=== PATIENT | female | born 1985 | race Caucasian/White ===

== ENCOUNTER 2016-11-21 15:48 | Outpatient (CLI) | payer MEDICAID ==
[~2016-11-21] VITALS: Ht 157.5 cm; Wt 66.7 kg
[2016-11-21] MEDS ORDERED: PRENAT PO (16:50)
[2016-11-21 16:51] VITALS: BP 109/56; PULSE 80; RESP 18; Ht 157.5 cm; Wt 66.7 kg
--- NOTE | 2016-11-21 17:26 | RADRPT ---
PROCEDURE: US OB biophysical profile for twin gestation. CLINICAL INDICATION: decreased movements TECHNIQUE: Multiple sonographic images of the pelvis were obtained. The images were reviewed on a PACS workstation. COMPARISON: No prior studies are available for comparison. FINDINGS: There is a twin viable intrauterine gestation. There is a normal amount of amniotic fluid. The placenta is posterior and fundal in location. There is no evidence of placental abruption or a placenta previa. Twin A Cardiac activity is present with 156 beats per minute. There is a vertex presentation. MVP = 4.0 cm Biophysical profile: movement 2/2 tone 2/2. breathing 2/2 KYLER 2/2 Total 8/8 Twin B Cardiac activity is present with 161 beats per minute. There is a breech presentation. MVP = 4.2 cm Biophysical profile: movement 2/2 tone 2/2. breathing 2/2 KYLER 2/2 Total 8/8 RPTAT: AA . IMPRESSION: Normal biophysical profile for twin gestation . . Physician Pio Date Time Electronically viewed and signed by Physician Pio on 11/21/2016 17:26 /
--- NOTE | 2016-11-21 17:39 | TRIAGE ---
OB Triage Datetime Report Generated by CPN: 11/21/2016 17:38 Datetime: 11/21/2016 17:35 Stage of : OB Triage Labor Evaluation Monitor Mode: External Datetime: 11/21/2016 16:48 Assessment Type: Triage Maternal Assessment Level of Consciousness: Fully Conscious DTR's/Clonus: DTRs 2+; No Clonus Headache: Denies Blurred Vision: No Respiratory Effort: Unlabored; Regular Rhythm; Equal Expansion Breath Sounds, Left: Clear and Equal Breath Sounds, Right: Clear and Equal Nausea/Vomiting: Denies RUQ Epigastric Pain: Denies Lower Extremities Edema: None Degree: None Upper Extremities Edema: None Degree: None Facial Edema: None Fall Risk Assessment History of Falling: (0) No Secondary Diagnosis: (0) No Ambulatory Aid: (0) Bedrest/Nurse Assist IV Therapy: (0) No Gait: (0) Normal/Bedrest/Immobile Mental Status: (0) Oriented to Own Ability Fall Score: 0 Fall Risk Score Definition: No Risk: No action required Datetime: 11/21/2016 16:45 Time of Arrival: 11/21/2016 15:40 EGA: 29.5 Arrived By: Ambulatory Arrived From: Office Chief Complaint: pt sent from clinic for C/O DFM Movement: Decreased Contractions: Denies/Absent Rupture of Membranes: Denies Vaginal Bleeding: None Vaginal Discharge: Denies Recent Sexual Intercouse: Denies Abdominal Trauma: Not Applicable Patient Complaints: None Time Provider Notified: 11/21/2016 17:37 Provider Notified: DELSHAD Initial Plan: NST/BPP Datetime: 11/21/2016 16:41 Labor Evaluation Monitor Mode: External Heart Rate Monitor Mode: External US
--- NOTE | 2016-11-21 18:43 | CONS ---
Date/Time of Note Date/Time of Note DATE: 11/21/16 TIME: 18:40 Assessment/Plan Assessment/Plan Additional Assessment/Plan 31 y/o at 29w 5d with twins and dfm -NST reactive x2, BPP normal x2 -discharge home -f/u with OB Consultation Date/Type/Reason Admit Date/Time Reason for Consultation Decreased movement, twins Hx of Present Illness 31 y/o at 29w 5d with twins with decreased movement. Denies LOF, VB , UCs, dysuria. Getting PNC without other complications. Per HPI. Other systems negative. Past Medical History Medical History: no pertinent history Past Surgical History Past Surgical Hx: no surgical history Social History Denies habits Smoking Status: Never smoker Exam/Review of Systems Vital Signs Vitals Vital Signs Date Time Temp Pulse Resp B/P Pulse Ox O2 Delivery O2 Flow Rate FiO2 11/21/16 16:51 98.5 80 18 109/56 99 Room Air Exam Gen: NAD HEENT: NCAT CV: RRR Pulm: CTAB Abd: gravid, NT Back: no CVAT Ext: NT FHT: reactive x2 [place]: no UCs BPP: / x2 NATALIYA TAMAYO November 21, 2016 18:43
== END 2016-11-21 18:00 | disposition home or self-care (01) ==
LOC: OBT 15:48 → L-D 15:52 → OBT 18:00
PROVIDERS: ATTEND Obstetrics & Gynecology
DX: O36.8130 Decreased fetal movements, third trimester, not applicable or unspecified (principal); O30.003 Twin pregnancy, unspecified number of placenta and unspecified number of amniotic sacs, third trimester; Z3A.29 29 weeks gestation of pregnancy
CPT/HCPCS: 76818; Z7500; G0463

== ENCOUNTER 2016-12-30 15:20 | Outpatient (CLI) | payer MEDICAID ==
[~2016-12-30] VITALS: Ht 157.5 cm; Wt 72.8 kg
[~2016-12-30 15:20] MED LIST: PRENAT PO
[2016-12-30 16:00] VITALS: Ht 157.5 cm; Wt 72.8 kg
[2016-12-30] MEDS ORDERED: FER325 PO (16:00)
[2016-12-30] MEDS ORDERED: CALC600T11 PO (16:00)
[2016-12-30] MEDS ORDERED: FOLI-49 PO (16:00)
[2016-12-30 16:01] VITALS: BP 99/53; PULSE 71; RESP 18
--- NOTE | 2016-12-30 16:07 | RADRPT ---
PROCEDURE: US biophysical profile. CLINICAL INDICATION: Twin gestation. Decreased motion. Skin rash. TECHNIQUE: Multiple sonographic images of the uterus were obtained. The images were revi ewed on a PACS workstation. COMPARISON: No prior studies are available for comparison. FINDINGS: There is a live twin intrauterine gestation. Fetus A: heart rate is 154 beats per minute. The position is cephalic. The placenta is shared fundal. The single largest pocket of amniotic fluid is 5.5 cm. Breathing Movement: 2 Gross Body Movement: 2 Tone: 2 Qualitative Amniotic Fluid Volume: 2 TOTAL: 8 Fetus B: heart rate is 154 beats per minute. The position is cephalic. The placenta is share fundal. The single largest pocket of amniotic fluid is 2.9 cm. Breathing Movement: 2 Gross Body Movement: 2 Tone: 2 Qualitative Amniotic Fluid Volume: 2 TOTAL: 8 IMPRESSION: 1. Fetus A biophysical score is 8/8. 2. Fetus B biophysical score is 8/8. RPTAT: QQ .Mikey Lopez MD, Date Time Electronically viewed and signed by .Mikey Lopez MD, on 12/30/2016 16:07 .R/
[2016-12-30] MEDS ORDERED: LACTATED RINGER'S 1,000 ML IV SCH (16:10)
[2016-12-30] MEDS ORDERED: OXYTOCIN 30 UNITS/LR 500 ML IV PRN (16:30)
[2016-12-30] MEDS ORDERED: AMPICILLIN 2 GM/NS (PMX) 100 ML IV ONE (16:30)
[2016-12-30] MEDS ORDERED: METHYLERGONOVINE 0.2 MG INJ IM PRN (16:30)
[2016-12-30] MEDS ORDERED: CARBOPROST 250 MCG INJ IM PRN (16:30)
[2016-12-30] MEDS ORDERED: BUTORPHANOL 2 MG INJ IV PRN ×2 (16:30)
[2016-12-30] MEDS ORDERED: LIDOCAINE 1% (MPF) 30 ML INJ INJ PRN (16:30)
[2016-12-30] MEDS ORDERED: LACTATED RINGER'S 500 ML IV ONE (16:30)
[2016-12-30] MEDS ORDERED: DINOPROSTONE 10 MG VAG SUPP VAG ONE (16:30)
[2016-12-30] MEDS ORDERED: MISOPROSTOL 200 MCG TAB PR PRN (16:30)
[2016-12-30] MEDS ORDERED: OXYTOCIN 30 UNITS/LR 500 ML IV SCH ×2 (16:30)
[2016-12-30] MEDS ORDERED: ACETAMINOPHEN/CODEINE #3 TAB PO PRN (16:30)
[2016-12-30] MEDS ORDERED: IBUPROFEN 600 MG TAB PO PRN (16:30)
--- NOTE | 2016-12-30 16:50 | TRIAGE ---
OB Triage Datetime Report Generated by CPN: 12/30/2016 16:49 Datetime: 12/30/2016 16:36 Stage of : OB Triage Maternal Assessment Level of Consciousness: Fully Conscious Labor Evaluation Frequency: 6-10 Monitor Mode: External Duration (sec)2399: 50-110 Quality: Mild Resting Tone [place]: Relaxed Heart Rate FHR Baseline Rate: 145 Monitor Mode: External US Variability: Moderate 6-25 bpm Accelerations: 15X15 Decelerations: None Category: Category I Pain Assessment Pain Scale: 0 Pain Goal: 3 Vaginal Exam Membrane Status: Intact Vaginal Bleeding: None Datetime: 12/30/2016 15:55 Monitor Mode: External US Datetime: 12/30/2016 15:44 Assessment Type: Triage Maternal Assessment Level of Consciousness: Fully Conscious DTR's/Clonus: DTRs 2+; No Clonus Headache: Denies Blurred Vision: No Respiratory Effort: Unlabored; Regular Rhythm; Equal Expansion Breath Sounds, Left: Clear and Equal Breath Sounds, Right: Clear and Equal Nausea/Vomiting: Denies RUQ Epigastric Pain: Denies Lower Extremities Edema: None Degree: None Upper Extremities Edema: None Degree: None Facial Edema: None Fall Risk Assessment History of Falling: (0) No Secondary Diagnosis: (0) No Ambulatory Aid: (0) Bedrest/Nurse Assist IV Therapy: (0) No Gait: (0) Normal/Bedrest/Immobile Mental Status: (0) Oriented to Own Ability Fall Score: 0 Fall Risk Score Definition: No Risk: No action required Datetime: 12/30/2016 15:43 Time of Arrival: 12/30/2016 15:18 EGA: 35.2 Arrived By: Ambulatory Arrived From: Office Chief Complaint: pt here C/O GENRALIZED RASH Movement: Present Contractions: Denies/Absent Rupture of Membranes: Denies Vaginal Bleeding: None Vaginal Discharge: Denies Recent Sexual Intercouse: Denies Abdominal Trauma: Not Applicable Patient Complaints: None Time Provider Notified: 12/30/2016 15:20 Provider Notified: JUDITH Initial Plan: NST/BPP X2 Datetime: 12/30/2016 15:34 Monitor Mode: External Monitor Mode: External US Datetime: 11/21/2016 17:35 Maternal Assessment Level of Consciousness: Fully Conscious Labor Evaluation Frequency: NONE Resting Tone [place]: Relaxed Heart Rate FHR Baseline Rate: 145 Monitor Mode: External US Variability: Moderate 6-25 bpm Accelerations: 15X15 Decelerations: None Pain Assessment Pain Scale: 0 Pain Goal: 3 Vaginal Exam Membrane Status: Intact Vaginal Bleeding: None Datetime: 11/21/2016 16:48 Fall Score: 0 Fall Risk Score Definition: No Risk: No action required Datetime: 11/21/2016 16:45 EGA: 29.5
--- NOTE | 2016-12-30 17:05 | QN ---
Documentation Comment pt with rash sent for nst good fm vss us wnl nst reactive a/p iup 35 weeks rash-stable dc home JEAN PAUL LUCAS MD Dec 30, 2016 17:04
[2016-12-30] MEDS ORDERED: AMPICILLIN 1 GM/NS (PMX) 50 ML IV SCH (20:30)
[2016-12-30] MEDS ORDERED: LACTATED RINGER'S 1,000 ML IV PRN (23:00)
--- NOTE | 2016-12-31 01:24 | NSTRPT ---
NST Information Datetime Report Generated by CPN: 12/31/2016 01:24 Datetime: 12/27/2016 10:10 NST Information EGA: 34.6 Test Number: 6 Time on Monitor: 12/27/2016 10:30 Time off Monitor: 12/27/2016 11:02 NST Duration (Min): 32 Reason for NST: Multiple Gestation; Other Reason for NST Other: Twins, [place]/Di Test and Monitor Explained: Monitor Explained; Test Explained; Verbalized Understanding Pulse: 75 Resp: 18 SBP: 97 DBP: 52 Test Evaluation NST Interventions: None Patient States Movement: Present Contraction Frequency: X1(denies) FHR Baseline : 130 Variability: Moderate 6-25bpm Accelerations: 15X15 Decelerations: None FHR Category: Category I NST Results: Reactive Comments: To u/s. TWIN A: mvp: 2.8cm. CEPHALIC LFT, TWIN B: 2.8cm. TRV-RT. 1105-Pt home undelivered with PTL precautions, kick count instructions reviewed and follow up NST appt. given. States understanding and denies futher questions at this time. NST Baby B Patient States Movement: Present FHR Baseline: 135 Variability: Moderate 6-25bpm Accelerations: 15X15 Decelerations: None FHR Category: Category I NST Results: Reactive Electronically Signed By E-Signature: with User ID: [id number] Datetime: 12/24/2016 08:16 NST Information EGA: 34.3 NST Duration (Min): 33 Datetime: 12/20/2016 08:22 NST Information EGA: 33.6 NST Duration (Min): 35 Datetime: 12/17/2016 13:33 NST Information EGA: 33.3 NST Duration (Min): 38 Datetime: 12/13/2016 08:23 NST Information EGA: 32.6 NST Duration (Min): 23 Datetime: 12/10/2016 14:39 NST Information EGA: 32.3 NST Duration (Min): 27
== END 2016-12-30 17:02 | disposition home or self-care (01) ==
LOC: OBT 15:20 → L-D 15:20 → OBT 17:02
PROVIDERS: ATTEND Obstetrics & Gynecology
DX: O26.893 Other specified pregnancy related conditions, third trimester (principal); Z3A.35 35 weeks gestation of pregnancy; R21 Rash and other nonspecific skin eruption
CPT/HCPCS: 76818; Z7500; G0463; J7120

== ENCOUNTER 2017-01-04 07:51 | Inpatient (IN) | payer MEDICAID ==
[~2017-01-04] VITALS: Ht 157.5 cm; Wt 72.8 kg
[~2017-01-04 07:51] MED LIST changes: +CALC600T11 PO; +FER325 PO; +FOLI-49 PO; +OXYTOCIN 30 UNITS/LR 500 ML BAG IV ONE
[2017-01-04 08:17] VITALS: Ht 157.5 cm; Wt 72.8 kg
[2017-01-04 08:19] VITALS: BP 102/61; PULSE 79
[2017-01-04 08:26] VITALS: BP 102/61; PULSE 79; RESP 20
[2017-01-04] MEDS ORDERED: METHYLERGONOVINE 0.2 MG INJ IM PRN ×2 (08:30→16:30)
[2017-01-04] MEDS ORDERED: CARBOPROST 250 MCG INJ IM PRN ×2 (08:30→16:30)
[2017-01-04] MEDS ORDERED: CEFAZOLIN 2 GM/50 ML (PMX) 50 ML IV SCH (08:30)
[2017-01-04] MEDS ORDERED: OXYTOCIN 30 UNITS/LR 500 ML IV PRN ×2 (08:30→16:30)
[2017-01-04] MEDS ORDERED: MISOPROSTOL 200 MCG TAB PR PRN ×2 (08:30→16:30)
[2017-01-04] MEDS: LACTATED RINGER'S 1,000 ML IV SCH ×3 (08:56→16:04)
[2017-01-04 09:38] LABS: ADD SCAN DIFF NO
[2017-01-04 09:46] LABS: BASOPHILS % 0.3 % (0.0-2.0); EOSINOPHILS # 0.4 10^3/ul (0.0-0.5); EOSINOPHILS % 5.6 % (0.0-7.0); HEMATOCRIT 36.4 % (37.0-47.0); LYMPHOCYTES # 1.3 10^3/ul (0.8-2.9); LYMPHOCYTES % 19.5 % (15.0-51.0); MEAN CORPUSCULAR HEMOGLOBIN 34.9 pg (29.0-33.0); MEAN CORPUSCULAR HGB CONC 35.7 g/dl (32.0-37.0); MEAN CORPUSCULAR VOLUME 97.8 fl (82.0-101.0); MEAN PLATELET VOLUME 12.8 fl (7.4-10.4); MONOCYTE # 0.6 10^3/ul (0.3-0.9); MONOCYTES % 8.9 % (0.0-11.0); NEUTROPHIL # 4.1 10^3/ul (1.6-7.5); NEUTROPHILS % 63.5 % (39.0-77.0); NUCLEATED RED BLOOD CELLS% 0.3 /100WBC (0.0-0.0); PLATELET COUNT 131 10^3/UL (140-415); RED BLOOD COUNT 3.72 10^6/ul (4.20-5.40); RED CELL DISTRIBUTION WIDTH 12.5 % (11.5-14.5); WHITE BLOOD COUNT 6.4 10^3/ul (4.8-10.8)
--- NOTE | 2017-01-04 10:14 | HP ---
Date/Time of Note Date/Time of Note DATE: 01/04/17 TIME: 10:08 OB - History Hx of Present Chief Complaint: Scheduled Estimated Due Date: Feb 01, 2017 : 1 Para: 0 Spontaneous : 0 Therapeutic : 0 Care: Good Care Ultrasounds: Normal mid trimester US Obstetrical Complications: Other (Monochorionic Diamniotic Twins) Medical Complications: None Past Family/Social History * Past Medical, Surgical, Family and Obstetric Histories reviewed from chart. GBS Status: Negative OB Admission Exam Vital Signs Vital Signs Vital Signs Date Time Temp Pulse Resp B/P Pulse Ox O2 Delivery O2 Flow Rate FiO2 01/04/17 08:26 98.2 79 20 102/61 99 Room Air Physical Exam HEENT: WNL Heart: Rhythm Normal Lungs: Clear, Equal Abdomen: WNL Extremities: Normal Reflexes: Normal Last 72 hours Lab Results CBC & BMP 01/04/17 08:30 OB Assessment/Plan Reason for admission: section Plan: Section ENRIKE STEIN MD Jan 04, 2017 10:14
[2017-01-04 10:18] LABS: INR 0.86; PARTIAL THROMBOPLASTIN TIME 28.3 Sec (25.0-35.0); PROTIME 11.7 Sec (12.2-14.2); PT RATIO 0.9
[2017-01-04] MEDS ORDERED: FENTAnyl 50 MCG/ML VIAL ONE (10:40)
[2017-01-04] MEDS ORDERED: morphine SULFATE/PF (10 MG/10 ML) INJ ONE (10:40)
[2017-01-04] MEDS ORDERED: DEXAMETHASONE 4 MG/ML 1 ML INJ ONE (11:03)
[2017-01-04] MEDS ORDERED: ONDANSETRON 4 MG INJ ONE (11:22)
[2017-01-04] MEDS ORDERED: ZOLPIDEM 5 MG TAB PO PRN (12:00)
[2017-01-04] MEDS ORDERED: DIPHENHYDRAMINE 50 MG INJ IV PRN (12:00)
[2017-01-04] MEDS ORDERED: HYDROmorphONE 1 MG/ML SYG IV PRN ×2 (12:00)
[2017-01-04] MEDS ORDERED: KETOROLAC 30 MG INJ IV PRN (12:00)
[2017-01-04] MEDS ORDERED: NALOXONE (0.4 MG/ML) INJ IV PRN (12:00)
[2017-01-04] MEDS: OXYTOCIN 30 UNITS/LR 500 ML IV SCH ×4 (13:03→21:00)
[2017-01-04] MEDS: ONDANSETRON 4 MG INJ IV PRN ×2 (14:25→20:57)
[2017-01-04 15:00] VITALS: BP 145/92; PULSE 60; RESP 18
[2017-01-04] MEDS ORDERED: LANOLIN 7 GM TUBE TOP PRN (16:30)
[2017-01-04 20:00] VITALS: BP 123/60; PULSE 56; RESP 18
[2017-01-04] MEDS: SENNA/DOCUSATE NA (8.6MG/50MG) TAB PO SCH (21:00)
[2017-01-05] VITALS: BP 112/59; PULSE 62; RESP 18
--- NOTE | 2017-01-05 00:16 | NSTRPT ---
NST Information Datetime Report Generated by CPN: 01/05/2017 00:16 Datetime: 01/02/2017 10:58 NST Information EGA: 35.5 Test Number: 7 Time on Monitor: 01/02/2017 11:39 Time off Monitor: 01/02/2017 12:07 NST Duration (Min): 28 Reason for NST: Multiple Gestation; Other Reason for NST Other: Twins, [place]/Di Test and Monitor Explained: Monitor Explained; Test Explained; Verbalized Understanding Pulse: 72 Resp: 18 SBP: 104 DBP: 50 Test Evaluation NST Interventions: None Patient States Movement: Present Contraction Frequency: NONE FHR Baseline : 130 Variability: Moderate 6-25bpm Decelerations: None FHR Category: Category I NST Results: Reactive Comments: To u/s. TWIN A: MVP: 3.7cm. VTX, TWIN B: MVP: 3.2cm. TRV. 1215-Pt home undelivered with labor precautions, kick count instructions reviewed, and to f ollow up scheduled C/S 01/04. States understanding and denies further questions at this time. NST Baby B Patient States Movement: Present FHR Baseline: 140 Variability: Moderate 6-25bpm Accelerations: 15X15 Decelerations: None FHR Category: Category I NST Results: Reactive Electronically Signed By E-Signature: with User ID: [id number] Datetime: 12/27/2016 10:10 NST Information EGA: 34.6 NST Duration (Min): 32 Datetime: 12/24/2016 08:16 NST Information EGA: 34.3 NST Duration (Min): 33 Datetime: 12/20/2016 08:22 NST Information EGA: 33.6 NST Duration (Min): 35 Datetime: 12/17/2016 13:33 NST Information EGA: 33.3 NST Duration (Min): 38 Datetime: 12/13/2016 08:23 NST Information EGA: 32.6 NST Duration (Min): 23 Datetime: 12/10/2016 14:39 NST Information EGA: 32.3 NST Duration (Min): 27
[2017-01-05] MEDS: LACTATED RINGER'S 1,000 ML IV SCH ×2 (01:10→08:46)
[2017-01-05 04:00] VITALS: BP 93/44; PULSE 61; RESP 18
[2017-01-05 07:38] LABS: ADD SCAN DIFF NO
[2017-01-05 07:43] LABS: BASOPHILS % 0.2 % (0.0-2.0); EOSINOPHILS # 0.1 10^3/ul (0.0-0.5); EOSINOPHILS % 0.5 % (0.0-7.0); HEMATOCRIT 33.1 % (37.0-47.0); HEMOGLOBIN 11.8 g/dl (12.0-16.0); LYMPHOCYTES # 1.1 10^3/ul (0.8-2.9); LYMPHOCYTES % 10.2 % (15.0-51.0); MEAN CORPUSCULAR HEMOGLOBIN 34.7 pg (29.0-33.0); MEAN CORPUSCULAR HGB CONC 35.6 g/dl (32.0-37.0); MEAN CORPUSCULAR VOLUME 97.4 fl (82.0-101.0); MEAN PLATELET VOLUME 12.1 fl (7.4-10.4); MONOCYTE # 0.7 10^3/ul (0.3-0.9); MONOCYTES % 6.3 % (0.0-11.0); NEUTROPHIL # 9.1 10^3/ul (1.6-7.5); NEUTROPHILS % 82.3 % (39.0-77.0); NUCLEATED RED BLOOD CELLS% 0.2 /100WBC (0.0-0.0); PLATELET COUNT 121 10^3/UL (140-415); RED CELL DISTRIBUTION WIDTH 12.3 % (11.5-14.5)
[2017-01-05 08:00] VITALS: BP 97/53; PULSE 65; RESP 16
[2017-01-05] MEDS: SENNA/DOCUSATE NA (8.6MG/50MG) TAB PO SCH ×2 (08:46→21:35)
[2017-01-05] MEDS: OXYCODONE/ACETAMINOPHEN (5/325) TAB PO PRN ×3 (11:13→22:50)
[2017-01-05] MEDS: IBUPROFEN 800 MG TAB PO SCH ×2 (14:25→21:35)
[2017-01-05 16:00] VITALS: BP 134/88; PULSE 65; RESP 18
[2017-01-05 19:45] VITALS: BP 114/55; PULSE 65; RESP 18
--- NOTE | 2017-01-05 22:29 | QN ---
Documentation Comment No complaint Afebrile VSS Abdomen soft ND POD #1 Stable Ambulate Advance diet. ENRIKE STEIN MD Jan 05, 2017 22:29
[2017-01-06] MEDS: OXYCODONE/ACETAMINOPHEN (5/325) TAB PO PRN ×4 (03:29→23:28)
[2017-01-06 04:06] VITALS: BP 108/56; PULSE 55; RESP 18
[2017-01-06] MEDS: IBUPROFEN 800 MG TAB PO SCH ×3 (05:43→21:46)
[2017-01-06 08:10] VITALS: BP 105/57; PULSE 55; RESP 16
[2017-01-06] MEDS: SENNA/DOCUSATE NA (8.6MG/50MG) TAB PO SCH ×2 (09:08→21:46)
[2017-01-06 16:00] VITALS: BP 111/63; PULSE 60; RESP 18
[2017-01-06 20:15] VITALS: BP 137/73; PULSE 56; RESP 18
[2017-01-07] MEDS: MAGNESIUM HYDROXIDE 30ML CUP PO PRN (01:29)
[2017-01-07 03:48] VITALS: BP 131/65; PULSE 63; RESP 18
[2017-01-07] MEDS: IBUPROFEN 800 MG TAB PO SCH ×3 (05:44→21:55)
--- NOTE | 2017-01-07 07:20 | PN ---
Date/Time of Note Date/Time of Note DATE: 01/07/17 TIME: 07:18 OB Subjective Subjective Subjective Late Entry Note: patient seen and examined last night POD# 2 Patient seen and examined, she is doing well, denies nausea, vomiting, shortness of breath, chest pain, headache. Lochia is appropriate. She has been ambulating without difficulty and tolerating regular diet. Pain is well controlled on current medications. OB Objective Objective Objective General: AAO X 3, comfortable, NAD, appropriate mood and affect Heart: RRR +S1, +S2, no murmurs Lungs: Clear to auscultation (B/L), no rales, rhonchi or wheezing ABD: Soft, non-tender. UFH: 2 cm below umbilicus Incision: Clear, dry, intact. No erythema, drainage or induration Flank: No CVA tenderness (B/L) LE: Mild edema. No clubbing, cyanosis, thigh or calf tenderness (B/L) OB Assessment/Plan Other plan: POD#2 S/P delivery. - Afebrile, vital sign stable. - Routine post- care. - Cont current management STEPHANE FRITZ Jan 07, 2017 07:20
[2017-01-07 07:55] VITALS: BP 118/72; PULSE 54; RESP 17
[2017-01-07] MEDS: SENNA/DOCUSATE NA (8.6MG/50MG) TAB PO SCH ×2 (08:39→20:56)
[2017-01-07] MEDS ORDERED: DIPHTH/TET/ACEL PERTUSS (ADULT) 0.5 ML VIAL IM* ONE (09:00)
--- NOTE | 2017-01-07 14:44 | QN ---
Documentation Comment No complaint Afebrile VSS Abdomen soft ND Continue with present care. ENRIKE STEIN MD Jan 07, 2017 14:44
[2017-01-07 16:15] VITALS: BP 109/59; PULSE 64; RESP 16
[2017-01-07] MEDS: OXYCODONE/ACETAMINOPHEN (5/325) TAB PO PRN (16:20)
[2017-01-07 19:30] VITALS: BP 122/58; PULSE 60; RESP 18
[2017-01-08 04:09] VITALS: BP 131/78; PULSE 58; RESP 18
[2017-01-08] MEDS: IBUPROFEN 800 MG TAB PO SCH ×2 (05:38→14:41)
[2017-01-08 08:30] VITALS: BP 118/64; PULSE 60; RESP 18
[2017-01-08] MEDS: SENNA/DOCUSATE NA (8.6MG/50MG) TAB PO SCH (09:27)
[2017-01-08] MEDS: OXYCODONE/ACETAMINOPHEN (5/325) TAB PO PRN ×2 (09:28→15:33)
[2017-01-08] MEDS: MAGNESIUM HYDROXIDE 30ML CUP PO PRN (09:29)
--- NOTE | 2017-01-08 14:19 | DS ---
Date/Time of Note Date/Time of Note DATE: 01/08/17 TIME: 14:16 Obstetrical Discharge Record Final Diagnosis Final Diagnosis: delivered Other Final Diagnosis Monochorionic Diamniotic Twins Section Section: Primary (Twins) Complications Complications: Low weight 1500-2500gms Complications Multiple Gestation Condition on Discharge Physical Assessment Voiding: Yes Bowel Movement: Yes Breast: Soft, non-tender Fundus: Firm Abdomen and Incision: Incision intact Calf Tenderness: No Patient Condition: Stable ENRIKE STEIN MD Jan 08, 2017 14:19
--- NOTE | 2017-01-12 08:30 | OPR ---
DATE OF OPERATION: 01/04/2017 PREOPERATIVE DIAGNOSIS: at 36 weeks with monochorionic diamniotic twins. POSTOPERATIVE DIAGNOSIS: at 36 weeks with monochorionic diamniotic twins. OPERATION PERFORMED: Primary low transverse section. SURGEON: Efren Jones MD HYBRID TECHNOLOGIST: Dagoberto Joy MD ANESTHESIA: Spinal. ANESTHESIOLOGIST: Dr. Banegas OPERATIVE PROCEDURE: The patient was taken to the operating room and placed on the operating table. After spinal anesthesia was given and the patient was placed . The area was prepped and draped in the usual sterile fashion. Spinal anesthesia was satisfactory. Using scalpel, Pfannenstiel incision was made about 2 fingerbreadths above the symphysis pubis. The incision was carried to the fascia, the fascia was incised and extended bilaterally with Galvan scissors. Abrbie's were used to separate the fascia from the muscle. The muscle was dissected down to peritoneum. The peritoneum was . Using a scalpel, a small transverse incision was made in the lower segment of the uterus and uterine cavity. Pfannenstiel was . Twin A, baby girl was delivered from cephalic presentation. There was a nuchal cord. After suctioned clear of amniotic fluid, the baby was handed off to the . Apgars were 8 and 9. Twin B, baby girl was delivered from cephalic presentation. After suction of amniotic fluid, the baby was handed off to the . Apgars were 9 and 9. The placenta was delivered without difficulty. The incision was closed with number 1 Monocryl continuous lock after assuring hemostasis both ovaries and tubes were . The uterine cavity was irrigated with warm saline. The peritoneum was closed with 2-0 Vicryl continuous. The fascia was closed with number 1 Vicryl continuous in 2 segments. The subcutaneous tissue was reapproximated with 0 chromic. The skin was closed with sree. Estimated blood loss 700 cc. Complications none. All counts were correct. Dictated By: Efren Jones MD /fnt/aida /Document#: [id number]
== END 2017-01-08 16:45 | disposition home or self-care (01) | DRG 766 ==
LOC: L-D 07:51 → PP1 14:48
PROVIDERS: ADMIT Obstetrics & Gynecology; ATTEND Obstetrics & Gynecology
PROC: 10D00Z1 Extraction of Products of Conception, Low, Open Approach (ICD-10-PCS; principal; 2017-01-04 10:00)
DX: O30.033 Twin pregnancy, monochorionic/diamniotic, third trimester (principal); Z37.2 Twins, both liveborn; Z3A.35 35 weeks gestation of pregnancy
CPT/HCPCS: 85025; 85610; 85730; 86592; 86850; 86900; 86901; 86920; 87340; 88307; 90715; 99464; J0690; J1100; J1885; J2210; J2274; J2405; J2590; J3010; J7120